=== PATIENT | female | born 1960 | race Two or more races ===

== ENCOUNTER 2024-07-17 21:18 | Emergency (ER) | payer MEDICAID ==
[~2024-07-17] VITALS: Ht 152.4 cm; Wt 72.6 kg
[2024-07-17] MEDS ORDERED: ASPIRIN 81 MG TAB.CHEW ONE (22:02)
[2024-07-17] MEDS ORDERED: NITROGLYCERIN OINT 1 GM PACKET TP ONE (22:03)
[2024-07-17] MEDS ORDERED: LORAZEPAM 0.5 MG TABLET ONE (22:03)
[2024-07-17 22:05] LABS: BASOPHILS % (AUTO) 0.5 % (0.0-2.0); EOSINOPHILS # (AUTO) 0.3 K/uL (0.0-0.7); EOSINOPHILS % (AUTO) 4.1 % (0.0-7.0); HEMATOCRIT 35.2 % (31.2-41.9); HEMOGLOBIN 11.7 g/dL (10.9-14.3); LYMPHOCYTES # (AUTO) 2.2 K/uL (0.8-4.8); LYMPHOCYTES % (AUTO) 34.4 % (20.5-51.5); MEAN CORPUSCULAR HEMOGLOBIN 29.8 uug (24.7-32.8); MEAN CORPUSCULAR HGB CONC 33 g/dL (32.3-35.6); MEAN CORPUSCULAR VOLUME 89.4 fL (75.5-95.3); MONOCYTES # (AUTO) 0.6 K/uL (0.1-1.30); MONOCYTES % (AUTO) 8.9 % (0.0-11.0); NEUTROPHILS # (AUTO) 3.3 K/uL (1.8-8.9); NEUTROPHILS % (AUTO) 52.1 % (38.5-71.5); PLATELET COUNT (AUTO) 257 K/uL (179-408); RED BLOOD CELL COUNT(AUTO) 3.94 MIL/uL (3.63-4.92); RED CELL DISTRIBUTION WIDTH 13.9 % (12.3-17.7); WHITE BLOOD COUNT (AUTO) 6.3 K/uL (3.8-11.8)
[2024-07-17 22:08] VITALS: BP 140/74
[2024-07-17] MEDS: NITROGLYCERIN OINT 1 GM PACKET TP ONE (22:08)
[2024-07-17] MEDS: ASPIRIN 81 MG TAB.CHEW PO ONE (22:09)
[2024-07-17] MEDS: LORAZEPAM 0.5 MG TABLET PO ONE (22:09)
[2024-07-17 22:10] LABS: DIFFERENTIAL COMMENT 1
[2024-07-17 22:15] LABS: CALCIUM 9.7 mg/dL (8.5-10.1); CARBON DIOXIDE 33 mmol/L (21-32); CHLORIDE 101 mmol/L (98-107); CREATININE 0.7 mg/dL (0.6-1.3); GLUCOSE 149 mg/dL (74-106); SODIUM SERUM 141 mmol/L (136-145); UREA NITROGEN, BLOOD 12 mg/dL (7-18)
[2024-07-17 22:28] LABS: ALANINE AMINOTRANSFERASE 28 U/L (14-59); ALBUMIN 4.1 g/dL (3.4-5.0); ALKALINE PHOSPHATASE 93 U/L (50-136); ASPARTATE AMINOTRANSFERASE 15 U/L (15-37); BILIRUBIN,DIRECT 0.2 mg/dL (0.0-0.2); BILIRUBIN,TOTAL 0.8 mg/dL (0.2-1.0); NT-PRO BNP 26 pg/mL (0-125); TOTAL PROTEIN, SERUM 7.8 g/dL (6.4-8.2)
[2024-07-18 02:14] VITALS: O2SAT 96
== END 2024-07-18 03:18 ==
LOC: ER 21:18
DX: R07.89 Other chest pain (principal); E11.9 Type 2 diabetes mellitus without complications; E78.00 Pure hypercholesterolemia, unspecified; Z20.822 Contact with and (suspected) exposure to COVID-19
CPT/HCPCS: 36415; 71045; 84484; 85025; A4606; A4663